=== PATIENT | male | born 1970 | race Caucasian/White ===

== ENCOUNTER 2019-08-20 06:47 | Day surgery (SDC) | payer BC ==
[~2019-08-20 06:47] MED LIST: Lactated Ringers 1,000 ML IV SCH; Sodium Chloride 0.9% 10 ML Syringe FLUSH PRN
[2019-08-20] MEDS ORDERED: Ketorolac 30 MG/ML SDV IVPUSH ONE (06:48)
[2019-08-20] MEDS ORDERED: Propofol 200 MG/20 ML SDV IV ONE (06:48)
[2019-08-20] MEDS ORDERED: Lidocaine 2% 5 ML SDV INJECT ONE (06:48)
[2019-08-20] MEDS ORDERED: Midazolam 1 MG/ML 2 ML SDV IV ONE (06:48)
[2019-08-20] MEDS ORDERED: Ondansetron 4 MG/2 ML SDV IVPUSH ONE (06:48)
[2019-08-20] MEDS ORDERED: Lidocaine 1% with EPINEPHrine 1:100,000 20 ML MDV INJECT ONE (07:53)
[2019-08-20] MEDS ORDERED: Bupivacaine 0.5% 30 ML SDV INJECT ONE (07:53)
--- NOTE | 2019-08-20 08:33 | PCM.SN ---
- Free Text/Narrative Note: EKG was obtained. compared to previous ekg from two weeks ago. No change. has noted some persistent pain l upper arm.
--- NOTE | 2019-08-20 08:36 | PCM.OPNOTE ---
- General Post-Op/Procedure Note Date of Surgery/Procedure: 08/20/19 Operative Procedure(s): excision of lipoma of base of neck Findings: 10x4x1 cm lipoma Pre Op Diagnosis: lipoma base of neck Post-Op Diagnosis: Same Anesthesia Technique: Local (7 ml 1 % lido with epi/0.5% buvipicaine), MAC Primary Surgeon: Dylan Washington Anesthesia Provider: Angel Vega Pathology: lipoma Complications: None Condition: Good Free Text/Narrative:: see dictation
[2019-08-20] MEDS ORDERED: Ibuprofen 600 MG Tab PO PRN (08:40)
--- NOTE | 2019-08-20 12:39 | OR ---
DATE OF OPERATION: 08/20/2019 SURGEON: Dylan Washington MD PROCEDURE PERFORMED: Excision of lipoma, base of left neck. PREOPERATIVE DIAGNOSIS: Lipoma. POSTOPERATIVE DIAGNOSIS: Lipoma. INDICATIONS FOR PROCEDURE: This is a 49-year-old white male who has had a lipoma at the base of his neck on the left side just above the left clavicle near the sternoclavicular joint and confirmed by ultrasound. It has gotten slightly larger and he is offered and accepted excision. INTRAOPERATIVE FINDINGS: 1. 7 mL of 1:1 mixture 1% lidocaine with epinephrine, 0.5% bupivacaine was used. 2. Specimen, lipoma was approximately 10 x 4 x 1 cm in size and was superficial to the platysmas muscle. DESCRIPTION OF OPERATION: After an excellent IV sedation was administered, the patient was prepped and draped in the usual sterile manner. Our local was injected surrounding the lipoma itself, and an incision was made essentially at the inferior edge of the lipoma in a previously existing skin line with a #15 scalpel blade. Combination of electrocautery and sharp dissection was used to carry out our dissection. Specimen was excised and delivered off the field and as noted in the finding section was superficial to the platysmas. After irrigating ensuring hemostasis, the wound was closed with a running subcu 4-0 Vicryl. Steri-Strips were applied. A Christiana dressing was applied as well. The patient tolerated the procedure well, was taken to recovery in good condition. /[id number] /MODL
== END 2019-08-20 09:43 | disposition home or self-care (01) ==
LOC: FB.SDS 06:47
PROVIDERS: ATTEND Surgery
DX: D17.0 Benign lipomatous neoplasm of skin and subcutaneous tissue of head, face and neck (principal); I10 Essential (primary) hypertension; E78.00 Pure hypercholesterolemia, unspecified; F32.9 Major depressive disorder, single episode, unspecified; G47.33 Obstructive sleep apnea (adult) (pediatric); G25.81 Restless legs syndrome; Z79.51 Long term (current) use of inhaled steroids; Z79.899 Other long term (current) drug therapy
CPT/HCPCS: 21554; 88307; 93005; J1885; J2001; J2250; J2405; J2704; J3490; J7120

== ENCOUNTER 2020-06-07 14:05 | Emergency (ER) | payer BC, OTHER ==
[2020-06-07] MEDS ORDERED: Sodium Chloride 0.9% 10 ML Syringe FLUSH PRN (15:41)
--- NOTE | 2020-06-07 17:01 | CT ---
INDICATION: COVID positive, tested 05/30/20 CT CHEST WITHOUT CONTRAST: Spiral 3.75 mm axial sections were obtained through the chest without contrast with sagittal and coronal reconstructions 06/07/20 - no comparison. Total exam DLP was 976.21 mGy-cm. The heart is normal in size. No pericardial effusion was seen. No mediastinal mass was identified. There is some moderate mediastinal lymphadenopathy which could be related to infection. Five areas of patchy peripheral infiltrate are noted on the right in the right upper lobe, right lower lobe, and middle lobe. One small area of patchy peripheral infiltrate is noted in the left lower lobe. These infiltrates would be compatible with COVID-19 type changes in the lungs. No pleural effusion was seen although localized pleural reactions were present in a few areas with the subpleural infiltrates present. The upper abdomen included on the study showed no gross abnormality, although there was suggestion of some minimal renal fascial thickening on the left. IMPRESSION: Peripheral infiltrates noted, mostly on the right which would be compatible with the patient's positive COVID-19 test. Report was attempted to be called to the emergency room at 1635 hours. EMERSON
[2020-06-07] MEDS ORDERED: predniSONE 20 MG Tab PO ONE (17:17)
--- NOTE | 2020-06-07 17:22 | EDM.PDOC ---
ED HPI GENERAL MEDICAL PROBLEM - General Chief Complaint: General Stated Complaint: COVID BONNIE Time Seen by Provider: 06/07/20 14:25 Source of Information: Reports: Patient History Limitations: Reports: No Limitations - History of Present Illness INITIAL COMMENTS - FREE TEXT/NARRATIVE: Patient presented to the ED because of nasal congestion and dyspnea. He was covid positive on 06/03/20. There is no fever,chills,N/V/D. Generalized Pain Score (Numeric/FACES): 4 - Related Data Allergies Allergy/AdvReac Type Severity Reaction Status Date / Time No Known Allergies Allergy Verified 08/19/19 13:30 Home Meds: Home Meds Aspirin 81 mg PO DAILY 08/19/19 [History] Benazepril [Lotensin] 20 mg PO DAILY 08/19/19 [History] Fluticasone Propionate [Flonase] 1 spray NS BID 08/19/19 [History] PARoxetine [Paxil] 60 mg PO DAILY 08/19/19 [History] Pramipexole Di-HCl [Mirapex] 0.25 mg PO BEDTIME 08/19/19 [History] Sildenafil [Revatio] 100 mg PO DAILY PRN 08/19/19 [History] Simvastatin [Zocor] 20 mg PO DAILY 08/19/19 [History] Testosterone [Androgel] 4 pump TD DAILY 08/19/19 [History] Triamcinolone Acetonide [Kenalog 0.1% Crm] 1 applic TOP BID PRN 08/19/19 [History] Celecoxib [CeleBREX] 200 mg PO BID #6 cap 08/20/19 [Rx] Pramipexole Di-HCl [Mirapex] 0.5 mg PO BEDTIME 08/20/19 [History] Mometasone Furoate [Nasonex [place]] 1 spray JACQUI BID #1 canister 06/07/20 [Rx] Past Medical History HEENT History: Reports: Impaired Vision Cardiovascular History: Reports: Afib, High Cholesterol, Hypertension Other Cardiovascular History: HOSPITALIZED FOR A FIB PRIOR TO CPAP USE. RELATES RECENT TESTING AT [facility] WITH ECG ET OTHER HEART TESTS FINDINGS NEGATIME Respiratory History: Reports: Sleep Apnea Gastrointestinal History: Reports: None, Diverticulosis Other Gastrointestinal History: STATES NOW THAT EATS WITH CAUTION BECAUSE HAS HAD INFLAMMATION WITH DIVERTICULITIS IN PAST. Other Genitourinary History: ERECTILE DYSFUNCTION,. VASECTOMY Musculoskeletal History: Reports: None Other Musculoskeletal History: RESTLESS LEG SYNDROME Neurological History: Reports: Other (See Below) Other Neuro History: RESTLESS LEG SYNDROME Psychiatric History: Reports: Depression Endocrine/Metabolic History: Reports: Obesity/BMI 30+ Hematologic History: Reports: None Oncologic (Cancer) History: Reports: None Dermatologic History: Reports: None - Infectious Disease History Other Infectious Disease History: STATES DOESN'T KNOW - Past Surgical History Head Surgeries/Procedures: Reports: None Social & Family History - Family History Family Medical History: Noncontributory - Caffeine Use Caffeine Use: Reports: Coffee, Soda ED ROS GENERAL - Review of Systems Review Of Systems: See Below Constitutional: Reports: No Symptoms HEENT: Reports: Sinus Problem Respiratory: Reports: Shortness of Breath Cardiovascular: Reports: No Symptoms Endocrine: Reports: No Symptoms GI/Abdominal: Reports: No Symptoms : Reports: No Symptoms Skin: Reports: No Symptoms ED EXAM, GENERAL - Physical Exam Exam: See Below Exam Limited By: No Limitations General Appearance: Alert, No Apparent Distress Eye Exam: Bilateral Eye: PERRL Ears: Normal External Exam, Normal Canal Nose: Normal Inspection, Nasal Drainage, Clear Rhinorrhea, Other (nasal mucosal edema) Throat/Mouth: Normal Inspection Head: Atraumatic Neck: Normal Inspection Respiratory/Chest: No Respiratory Distress, Lungs Clear Cardiovascular: Normal Peripheral Pulses, Regular Rate, Rhythm, No Edema GI/Abdominal: Normal Bowel Sounds, Soft, Non-Tender, No Organomegaly Back Exam: Normal Inspection, Full Range of Motion Extremities: Normal Inspection, Normal Range of Motion Neurological: Alert, Oriented, CN II-XII Intact, Normal Cognition Psychiatric: Normal Affect Course - Vital Signs Text/Narrative:: Labs/EKG/Chest CT was discussed with patient and verbalized full understanding prednisone 40 mg PO x1 Last Recorded V/S: Last Vital Signs Temp 36.7 C 06/07/20 14:21 Pulse 74 06/07/20 14:21 Resp 18 06/07/20 14:21 BP 162/83 H 06/07/20 14:21 Pulse Ox 100 06/07/20 14:21 - Orders/Labs/Meds Orders: Active Orders 24 hr Category Date Time Status CULTURE BLOOD [BC] Urgent Lab 06/07/20 16:00 Received CULTURE BLOOD [BC] Urgent Lab 06/07/20 16:05 Received Blood Culture x2 Reflex Set [OM.PC] Urgent Oth 06/07/20 15:41 Ordered Saline Lock Insert [OM.PC] Routine Oth 06/07/20 15:41 Ordered EKG 12 Lead [EK] Routine Ther 06/07/20 15:41 Ordered Labs: Laboratory Tests 06/07/20 06/07/20 06/07/20 Range/Units 16:00 16:00 16:00 WBC 7.3 (4.5-12.0) X10-3/uL RBC 5.32 (4.30-5.75) x10(6)uL Hgb 15.7 (13.5-17.8) g/dL Hct 46.0 (30.0-51.3) % MCV 86.6 (80-96) fL MCH 29.6 (27.7-33.6) pg MCHC 34.2 (32.2-35.4) g/dL RDW 11.9 (11.5-15.5) % Plt Count 249 (125-369) X10(3)uL MPV 7.7 (7.4-10.4) fL Neutrophils % (Manual) 68 (46-82) % Lymphocytes % (Manual) 23 (13-37) % Monocytes % (Manual) 8 (4-12) % Eosinophils % (Manual) 1 (0-5) % PT 11.0 (9.0-11.1) sec INR 1.02 (1.00-1.24) APTT 26.5 (24.4-33.2) SECONDS D-Dimer, Quantitative 0.29 (0.0-0.59) mg/LFEU Sodium 139 (135-145) mmol/L Potassium 3.7 (3.5-5.3) mmol/L Chloride 103 (100-110) mmol/L Carbon Dioxide 27 (21-32) mmol/L BUN 16 (7-18) mg/dL Creatinine 1.1 (0.70-1.30) mg/dL Est Cr Clr Drug Dosing 88.18 mL/min Estimated GFR (MDRD) > 60 (>60) BUN/Creatinine Ratio 14.5 (9-20) Glucose 99 (80-116) mg/dL Lactic Acid (0.4-2.0) mmol/L Calcium 9.0 (8.6-10.2) mg/dL Total Bilirubin 0.5 (0.1-1.3) mg/dL AST 31 H (5-25) IU/L ALT 71 H (12-36) U/L Alkaline Phosphatase 98 (56-112) IU/L Troponin I (4.0-60.3) pg/mL C-Reactive Protein (0.5-0.9) mg/dL NT-Pro-B Natriuret Pep (<=125) pg/mL Total Protein 7.6 (6.0-8.0) g/dL Albumin 4.2 (3.5-5.2) g/dL Globulin 3.4 g/dL Albumin/Globulin Ratio 1.2 06/07/20 06/07/20 Range/Units 16:00 16:00 WBC (4.5-12.0) X10-3/uL RBC (4.30-5.75) x10(6)uL Hgb (13.5-17.8) g/dL Hct (30.0-51.3) % MCV (80-96) fL MCH (27.7-33.6) pg MCHC (32.2-35.4) g/dL RDW (11.5-15.5) % Plt Count (125-369) X10(3)uL MPV (7.4-10.4) fL Neutrophils % (Manual) (46-82) % Lymphocytes % (Manual) (13-37) % Monocytes % (Manual) (4-12) % Eosinophils % (Manual) (0-5) % PT (9.0-11.1) sec INR (1.00-1.24) APTT (24.4-33.2) SECONDS D-Dimer, Quantitative (0.0-0.59) mg/LFEU Sodium (135-145) mmol/L Potassium (3.5-5.3) mmol/L Chloride (100-110) mmol/L Carbon Dioxide (21-32) mmol/L BUN (7-18) mg/dL Creatinine (0.70-1.30) mg/dL Est Cr Clr Drug Dosing mL/min Estimated GFR (MDRD) (>60) BUN/Creatinine Ratio (9-20) Glucose (80-116) mg/dL Lactic Acid 1.4 (0.4-2.0) mmol/L Calcium (8.6-10.2) mg/dL Total Bilirubin (0.1-1.3) mg/dL AST (5-25) IU/L ALT (12-36) U/L Alkaline Phosphatase (56-112) IU/L Troponin I 7.2 (4.0-60.3) pg/mL C-Reactive Protein 0.7 (0.5-0.9) mg/dL NT-Pro-B Natriuret Pep 17 (<=125) pg/mL Total Protein (6.0-8.0) g/dL Albumin (3.5-5.2) g/dL Globulin g/dL Albumin/Globulin Ratio Meds: Medications Discontinued Medications Generic Name Dose Route Start Last Admin Trade Name Freq PRN Reason Stop Dose Admin Prednisone 40 mg 06/07/20 17:17 06/07/20 17:37 Prednisone PO 06/07/20 17:18 40 mg ONETIME ONE Administration Sodium Chloride 10 ml 06/07/20 15:41 Saline Flush FLUSH ASDIRECTED PRN Keep Vein Open Departure - Departure Time of Disposition: 17:20 Disposition: Home, Self-Care 01 Condition: Good Clinical Impression: COVID-19 - Discharge Information Prescriptions: Mometasone Furoate [Nasonex [place]] 1 spray JACQUI BID #1 canister Instructions: COVID-19 Frequently Asked Questions Referrals: Adrián Wagner MD [Primary Care Provider] - Forms: ED Department Discharge Additional Instructions: please read discharge instructions on COVID Increase water intake nasal flush 3 times daily as instructed nasonex nasal spray twice daily for 7 days follow up with your doctor as needed or return to the ED if you are severely short of breath-you can't talk, or walk or feed yourself Sepsis Event Note (ED) - Evaluation Sepsis Screening Result: No Definite Risk - My Orders Last 24 Hours: My Active Orders 06/07/20 15:41 Blood Culture x2 Reflex Set [OM.PC] Urgent Saline Lock Insert [OM.PC] Routine EKG 12 Lead [EK] Routine 06/07/20 16:00 CULTURE BLOOD [BC] Urgent 06/07/20 16:05 CULTURE BLOOD [BC] Urgent - Assessment/Plan Last 24 Hours: My Active Orders 06/07/20 15:41 Blood Culture x2 Reflex Set [OM.PC] Urgent Saline Lock Insert [OM.PC] Routine EKG 12 Lead [EK] Routine 06/07/20 16:00 CULTURE BLOOD [BC] Urgent 06/07/20 16:05 CULTURE BLOOD [BC] Urgent
== END 2020-06-07 17:25 | disposition home or self-care (01) ==
LOC: FB.ED 14:05
DX: U07.1 COVID-19 (principal); I48.91 Unspecified atrial fibrillation; E78.00 Pure hypercholesterolemia, unspecified; I10 Essential (primary) hypertension; G25.81 Restless legs syndrome; F32.9 Major depressive disorder, single episode, unspecified; E66.9 Obesity, unspecified; Z68.35 Body mass index [BMI] 35.0-35.9, adult; Z79.82 Long term (current) use of aspirin; Z79.899 Other long term (current) drug therapy
CPT/HCPCS: 36415; 71250; 80053; 83605; 83880; 84484; 85025; 85379; 85610; 85730; 86140; 87040; 99283; 99285-25; J7512

== ENCOUNTER 2021-11-17 18:10 | Emergency (ER) | payer BC, OTHER ==
[2021-11-17] MEDS: Sodium Chloride 0.9% 10 ML Syringe FLUSH PRN ×2 (18:35→18:41)
[2021-11-17] MEDS ORDERED: Aspirin 81 MG Tab.Chew PO STA (18:36)
[2021-11-17] MEDS ORDERED: Metoprolol Tartrate 50 MG Tab PO STA (18:36)
[2021-11-17] MEDS ORDERED: Ketorolac 30 MG/ML SDV IVPUSH STA (18:36)
[2021-11-17] MEDS ORDERED: Metoprolol Tartrate 25 MG Tab PO STA (18:38)
--- NOTE | 2021-11-17 19:26 | EDM.PDOC ---
ED HPI GENERAL MEDICAL PROBLEM - General Chief Complaint: Chest Pain Stated Complaint: CHEST PAIN Time Seen by Provider: 11/17/21 18:30 Source of Information: Reports: Patient History Limitations: Reports: No Limitations - History of Present Illness INITIAL COMMENTS - FREE TEXT/NARRATIVE: Patient presented to the ED because of left shoulder pain radiating to the chest which started a week ago and persisted. The pain is pleuritic/5/10 without any associated dyspnea, nausea or vomiting. He has a history of anxiety and took his ativan prior to coming here. Chest Pain Score (Numeric/FACES): 4 - Related Data Allergies Allergy/AdvReac Type Severity Reaction Status Date / Time No Known Allergies Allergy Verified 11/17/21 18:56 Home Meds: Home Meds Aspirin 81 mg PO DAILY 08/19/19 [History] Benazepril [Lotensin] 20 mg PO DAILY 08/19/19 [History] Fluticasone Propionate [Flonase] 1 spray NS BID 08/19/19 [History] PARoxetine [Paxil] 60 mg PO DAILY 08/19/19 [History] Pramipexole Di-HCl [Mirapex] 0.25 mg PO BEDTIME 08/19/19 [History] Sildenafil [Revatio] 100 mg PO DAILY PRN 08/19/19 [History] Simvastatin [Zocor] 20 mg PO DAILY 08/19/19 [History] Testosterone [Androgel] 4 pump TD DAILY 08/19/19 [History] Triamcinolone Acetonide [Kenalog 0.1% Crm] 1 applic TOP BID PRN 08/19/19 [History] Celecoxib [CeleBREX] 200 mg PO BID #6 cap 08/20/19 [Rx] Pramipexole Di-HCl [Mirapex] 0.5 mg PO BEDTIME 08/20/19 [History] Mometasone Furoate [Nasonex [place]] 1 spray JACQUI BID #1 canister 06/07/20 [Rx] Past Medical History HEENT History: Reports: Impaired Vision Cardiovascular History: Reports: Afib, High Cholesterol, Hypertension Other Cardiovascular History: HOSPITALIZED FOR A FIB PRIOR TO CPAP USE. RELATES RECENT TESTING AT [facility] WITH ECG ET OTHER HEART TESTS FINDINGS NEGATIME Respiratory History: Reports: Sleep Apnea Gastrointestinal History: Reports: None, Diverticulosis Other Gastrointestinal History: STATES NOW THAT EATS WITH CAUTION BECAUSE HAS HAD INFLAMMATION WITH DIVERTICULITIS IN PAST. Other Genitourinary History: ERECTILE DYSFUNCTION,. VASECTOMY Musculoskeletal History: Reports: None Other Musculoskeletal History: RESTLESS LEG SYNDROME Neurological History: Reports: Other (See Below) Other Neuro History: RESTLESS LEG SYNDROME Psychiatric History: Reports: Depression Endocrine/Metabolic History: Reports: Obesity/BMI 30+ Hematologic History: Reports: None Oncologic (Cancer) History: Reports: None Dermatologic History: Reports: None - Infectious Disease History Other Infectious Disease History: STATES DOESN'T KNOW - Past Surgical History Head Surgeries/Procedures: Reports: None Social & Family History - Family History Family Medical History: No Pertinent Family History - Caffeine Use Caffeine Use: Reports: Coffee, Soda ED ROS GENERAL - Review of Systems Review Of Systems: See Below Constitutional: Reports: No Symptoms HEENT: Reports: No Symptoms Respiratory: Reports: No Symptoms Cardiovascular: Reports: Chest Pain Endocrine: Reports: No Symptoms GI/Abdominal: Reports: No Symptoms : Reports: No Symptoms Musculoskeletal: Reports: No Symptoms Skin: Reports: No Symptoms Neurological: Reports: No Symptoms Psychiatric: Reports: No Symptoms ED EXAM, GENERAL - Physical Exam Exam: See Below Exam Limited By: No Limitations General Appearance: Alert, No Apparent Distress Eye Exam: Bilateral Eye: PERRL Ears: Normal External Exam, Normal Canal Nose: Normal Inspection, Normal Mucosa, No Blood Throat/Mouth: Normal Inspection, Normal Lips, Normal Teeth Head: Atraumatic, Normocephalic Neck: Normal Inspection, Supple, Non-Tender, Full Range of Motion Respiratory/Chest: No Respiratory Distress, Lungs Clear, Normal Breath Sounds, No Accessory Muscle Use, Chest Non-Tender Cardiovascular: Normal Peripheral Pulses, Regular Rate, Rhythm, No Edema, No Gallop, No JVD, No Murmur, No Rub GI/Abdominal: Normal Bowel Sounds, Soft, Non-Tender, No Organomegaly, No Distention, No Abnormal Bruit Back Exam: Normal Inspection, Full Range of Motion Extremities: Normal Inspection, Normal Range of Motion, Non-Tender, No Pedal Edema, Normal Capillary Refill Neurological: Alert, Oriented, CN II-XII Intact, Normal Cognition, Normal Reflexes, No Motor/Sensory Deficits Psychiatric: Normal Affect #1 Interpretation EKG Date: 11/17/21 Time: 18:16 Rhythm: Other (Sinus Tach) Rate (Beats/Min): 104 [place]: Normal P-Wave: Present QRS: Normal ST-T: Normal QT: Normal [place]/PQ Interval: 146 Comparison: NA - No Prior EKG EKG Interpretation Comments: Sinus Tach Course - Vital Signs Text/Narrative:: Lab/EKG result was reviewed and discussed with patient ASA 243 PO x1 Toradol 30 mg IV x1 Last Recorded V/S: Last Vital Signs Temp Pulse 103 H 11/17/21 18:43 Resp BP 151/89 H 11/17/21 18:43 Pulse Ox 95 11/17/21 18:25 - Orders/Labs/Meds Orders: Active Orders 24 hr Category Date Time Status D-DIMER QUANTITATIVE [COAG] Stat Lab 11/17/21 18:40 Received Sodium Chloride 0.9% [Saline Flush] Med 11/17/21 18:35 Active 10 ml FLUSH ASDIRECTED PRN Saline Lock Insert [OM.PC] Routine Oth 11/17/21 18:35 Ordered EKG 12 Lead [EK] Routine Ther 11/17/21 18:24 Ordered Medication Orders Sodium Chloride (Sodium Chloride 0.9% 10 Ml Syringe) 10 ml FLUSH ASDIRECTED PRN PRN Reason: Keep Vein Open Last Admin: 11/17/21 18:41 Dose: 10 ml Documented by: Admin: 11/17/21 18:35 Dose: 10 ml Documented by: CHARMAINE Labs: Laboratory Tests 11/17/21 11/17/21 11/17/21 Range/Units 18:40 18:40 18:40 WBC 10.8 H (3.2-10.1) x10-3/uL RBC 5.67 (3.90-5.90) x10(6)uL Hgb 17.0 (12.9-17.7) g/dL Hct 50.1 (38.3-50.1) % MCV 88.2 (80.8-98.7) fL MCH 30.0 (27.0-33.3) pg MCHC 34.0 (28.7-35.3) g/dL RDW 13.1 (12.4-15.0) % Plt Count 284 (117-477) x10(3)uL MPV 8.3 (6.7-11.0) fL Neut % (Auto) 65.0 (40.3-71.8) % Lymph % (Auto) 24.6 (15.8-45.3) % [place] % (Auto) 7.6 (5.5-15.2) % Eos % (Auto) 2.1 (0.1-6.8) % Baso % (Auto) 0.7 (0.3-3.8) % Neut # (Auto) 7.0 H (1.7-6.9) x10-3/uL Lymph # (Auto) 2.7 (0.5-4.5) x10-3/uL [place] # (Auto) 0.8 (0.0-1.2) x10-3/uL Eos # (Auto) 0.2 (0.0-0.6) x10-3/uL Baso # (Auto) 0.1 (0.0-0.3) x10-3/uL Sodium 139 (135-145) mmol/L Potassium 3.8 (3.5-5.3) mmol/L Chloride 102 (100-110) mmol/L Carbon Dioxide 26 (21-32) mmol/L BUN 19 H (7-18) mg/dL Creatinine 1.2 (0.70-1.30) mg/dL Est Cr Clr Drug Dosing TNP Estimated GFR (MDRD) > 60 (>60) BUN/Creatinine Ratio 15.8 (9-20) Glucose 191 H D (80-116) mg/dL Calcium 8.9 (8.6-10.2) mg/dL Total Bilirubin 0.6 (0.1-1.3) mg/dL AST 36 H D (5-25) IU/L ALT 66 H (12-36) U/L Alkaline Phosphatase 89 (56-112) IU/L Troponin I 6.6 (4.0-60.3) pg/mL Total Protein 7.7 (6.0-8.0) g/dL Albumin 4.2 (3.5-5.2) g/dL Globulin 3.5 g/dL Albumin/Globulin Ratio 1.2 Meds: Medications Generic Name Dose Route Start Last Admin Trade Name Freq PRN Reason Stop Dose Admin Sodium Chloride 10 ml 11/17/21 18:35 11/17/21 18:41 Sodium Chloride 0.9% 10 Ml Syringe FLUSH 10 ml ASDIRECTED PRN Administration Keep Vein Open Discontinued Medications Generic Name Dose Route Start Last Admin Trade Name Pramod PRN Reason Stop Dose Admin Aspirin 324 mg 11/17/21 18:36 11/17/21 18:40 Aspirin 81 Mg Tab.Chew PO 11/17/21 18:37 243 mg NOW STA Administration Ketorolac Tromethamine 30 mg 11/17/21 18:36 11/17/21 18:40 Ketorolac 30 Mg/Ml Sdv IVPUSH 11/17/21 18:37 30 mg NOW STA Administration Metoprolol Tartrate 50 mg 11/17/21 18:36 11/17/21 18:41 Metoprolol Tartrate 50 Mg Tab PO 11/17/21 18:37 Not Given NOW STA Metoprolol Tartrate 25 mg 11/17/21 18:38 11/17/21 18:43 Metoprolol Tartrate 25 Mg Tab PO 11/17/21 18:39 25 mg NOW STA Administration Departure - Departure Time of Disposition: 19:30 Disposition: Home, Self-Care 01 Condition: Good Clinical Impression: Chest pain, Anxiety Instructions: Nonspecific Chest Pain, Adult, [id number], Managing Anxiety, Adult Referrals: Nicki Emery NP [Primary Care Provider] - Additional Instructions: Please read discharge instructions on chest walll pain and anxiety Take aleve 2 tablets twice daily for 1 week Follow up with you doctor this coming week Sepsis Event Note (ED) - Focused Exam Vital Signs: Vital Signs Pulse BP Pulse Ox 11/17/21 18:43 103 H 151/89 H 11/17/21 18:25 95 - My Orders Last 24 Hours: My Active Orders 11/17/21 18:24 EKG 12 Lead [EK] Routine 11/17/21 18:35 Sodium Chloride 0.9% [Saline Flush] 10 ml FLUSH ASDIRECTED PRN Saline Lock Insert [OM.PC] Routine 11/17/21 18:40 D-DIMER QUANTITATIVE [COAG] Stat - Assessment/Plan Last 24 Hours: My Active Orders 11/17/21 18:24 EKG 12 Lead [EK] Routine 11/17/21 18:35 Sodium Chloride 0.9% [Saline Flush] 10 ml FLUSH ASDIRECTED PRN Saline Lock Insert [OM.PC] Routine 11/17/21 18:40 D-DIMER QUANTITATIVE [COAG] Stat
== END 2021-11-17 19:45 | disposition home or self-care (01) ==
LOC: FB.ED 18:10
DX: R07.9 Chest pain, unspecified (principal); F41.9 Anxiety disorder, unspecified; I48.91 Unspecified atrial fibrillation; E78.00 Pure hypercholesterolemia, unspecified; I10 Essential (primary) hypertension; E66.9 Obesity, unspecified; Z68.30 Body mass index [BMI] 30.0-30.9, adult; Z79.82 Long term (current) use of aspirin; Z79.899 Other long term (current) drug therapy
CPT/HCPCS: 36415; 80053; 84484; 85025; 85379; 93005; 96374; 99285-25; A9270-GY; J1885